=== PATIENT | female | born 1975 | race Caucasian/White ===

== ENCOUNTER 2022-03-09 07:49 | Outpatient (CLI) | payer OTHER, SELFPAY ==
[2022-03-09 12:02] LABS: Vitamin D 25 Hydroxy* 22 ng/mL (30-80)
[2022-03-09 12:21] LABS: Albumin* 3.9 g/dL (3.3-5.0); Chloride* 104 mmol/L (96-114)
[2022-03-09 12:22] LABS: Potassium* 3.8 mmol/L (3.6-5.1); Sodium* 141 mmol/L (135-149)
[2022-03-09 12:24] LABS: Aspartate Amino Transferase* 39 U/L (12-35); Bilirubin Total* 0.6 mg/dL (0.1-1.5); Blood Urea Nitrogen* 11 mg/dL (5-24); Carbon Dioxide* 29 mmol/L (20-32); Cholesterol* 201 mg/dL (90-199); Creatinine* 0.7 mg/dL (0.5-1.5); Estimated Glomerular Filt Rate 109 ml/min; Total Protein* 7.2 g/dL (6.0-8.3)
[2022-03-09 12:25] LABS: Alanine Aminotransferase* 50 U/L (4-35); Alkaline Phosphatase* 81 U/L (40-150); Calcium* 9.1 mg/dL (8.4-10.6); Glucose* 121 mg/dL (60-115); HDL Cholesterol* 31 mg/dL (>=50); LDL Cholesterol Calculated 138 mg/dL (<100); Triglycerides* 159 mg/dL (40-149)
== END 2022-03-09 07:50 | disposition home or self-care (01) ==
PROVIDERS: PCP Family Medicine; Visit Provider Family Medicine
DX: E78.5 Hyperlipidemia, unspecified (principal); R73.03 Prediabetes; E55.9 Vitamin D deficiency, unspecified; U07.1 COVID-19
CPT/HCPCS: 80053; 80061; 82306

== ENCOUNTER 2022-05-06 11:12 | Outpatient (CLI) | payer OTHER, SELFPAY ==
--- NOTE | 2022-05-06 11:30 | CRLHL7_ITS ---
For Patients: As a result of the Century Cures Act, medical imaging exams and procedure reports are released immediately into your electronic medical record. You may view this report before your referring provider. If you have questions, please contact your health care provider. BILATERAL SCREENING MAMMOGRAM WITH COMPUTER-AIDED DETECTION AND TOMOSYNTHESIS TECHNIQUE: CC and MLO views were obtained. These mammographic images have been obtained using full-field digital technique. These mammographic images were interpreted with the benefit of computer-aided detection. Breast Tomosynthesis was used in this interpretation. COMPARISON FILM: 05/05/21, 04/25/20, 04/25/18. FINDINGS: There are scattered areas of fibroglandular density IMPRESSION: There is no radiographic evidence for malignancy. ASSESSMENT: BI-RADS Category 1: Negative RECOMMENDATION: Routine screening mammogram in 1 year. A lay language report of this examination will be provided to the patient. Wayne Ritchie M.D. Diagnostic Radiologist [email or web address] STEFANY/Dictated by: Wayne Ritchie MD @ 05/06/2022 11:51:00 AM (Electronically Signed)
== END 2022-05-06 11:13 | disposition home or self-care (01) ==
PROVIDERS: PCP Family Medicine; Visit Provider Family Medicine
DX: Z12.31 Encounter for screening mammogram for malignant neoplasm of breast (principal)
CPT/HCPCS: 77063; 77067

== ENCOUNTER 2023-01-18 09:14 | Emergency (ER) | payer OTHER, SELFPAY ==
[2023-01-18] VITALS (19 sets, daily range): BP systolic 139–183; BP diastolic 82–98; PULSE 56–149; RESP 18; TEMP 36.1; O2SAT 91–97; BMI 48.4
--- NOTE | 2023-01-18 09:37 | ED_ITS ---
HPI - Abdominal Pain General Time Seen by Provider: 09:37 Date Seen: 01/18/23 Chief Complaint: Abdominal Pain Stated Complaint: Vomiting, side pain Time Seen by Provider: 01/18/23 09:37 Source: patient, RN notes reviewed and old records reviewed Mode of arrival: ambulatory Limitations: no limitations History of Present Illness HPI narrative: Macarena is a very pleasant 47-year-old female with a history of elevated BMI, asthma, kidney stones who comes to the emergency room with pain and vomiting. Patient notes the onset of left lateral abdominal pain radiating into her back today. She is rating the pain a 10/10. It is associated with nausea and vomiting. She has not noticed any fever but does not feel well. She has had no dysuria hematuria or diarrhea. She has had kidney stones in the past but this does not feel like that. She has not yet taken anything for pain. She is at work this morning she works for [employer] in [employer]. She notes that the pain was so bad that she almost had delay on the floor. Related Data Home Medications Medication Instructions Recorded Confirmed albuterol sulfate 2.5 mg/3 mL 2.5 mg inhalation ONCE PRN 03/09/22 12/16/22 (0.083 %) solution for nebulization loratadine 10 mg tablet 10 mg PO DAILY 03/09/22 12/16/22 multivitamin 1 tab PO QDAY 03/09/22 12/16/22 Previous Rx's Medication Instructions Recorded albuterol sulfate 90 mcg/actuation 2 puff inhalation .Q4hprn PRN 03/29/22 aerosol inhaler shortness of breath or wheezing #8.5 grams hydrocodone 5 mg-acetaminophen 325 1 tab PO Q4-6H PRN pain #14 tabs 01/18/23 mg tablet ketorolac 10 mg tablet 10 mg PO Q6H 5 days #20 tabs 01/18/23 ondansetron 4 mg disintegrating 4 mg PO Q8H PRN nausea and 01/18/23 tablet vomiting #10 tabs Allergies Allergy/AdvReac Type Severity Reaction Status Date / Time latex Allergy Mild Rash Verified 08/09/22 12:44 Review of Systems Status of ROS Reports: 10 or more systems reviewed and unremarkable except as noted in History and below Const Reports: chills and fatigue; Denies: fever ENMT Denies: throat pain, neck pain or difficulty swallowing Cardio Denies: chest pain or shortness of breath with exertion Resp Denies: shortness of breath GI Reports: abdominal pain, nausea and vomiting; Denies: diarrhea, difficulty swallowing or blood in stool Denies: painful urination, urinary frequency, urinary urgency or blood in urine Musculo Reports: back pain; Denies: neck pain Neuro Denies: headache Endo Reports: fatigue [facility] Medical History Cerumen impaction ?H61.20 - Impacted cerumen, unspecified ear (ICD-10) Calculus of kidney ?N20.0 - Calculus of kidney (ICD-10) Allergic reaction ?T78.40XA - Allergy, unspecified, initial encounter (ICD-10) Surgical History History of tonsillectomy (09/28/11) ?Z90.89 - Acquired absence of other organs (ICD-10) History of cholecystectomy ?Z90.49 - Acquired absence of other specified parts of digestive tract (ICD- 10) Social History Smoking Status: Never smoker How often do you have a drink containing alcohol: never How often do you have six or more drinks on one occasion: Never AUDIT-C Alcohol total score: 0 Non-prescribed substance use: denies use Little interest or pleasure in doing things: not at all Feeling down, depressed, or hopeless: several days Exam Narrative: Exam Narrative: Alert and oriented. Is preferring to sit on the side of the bed. External ears eyes nose clear. Oral cavity moist mucous membranes. Heart with regular rate and rhythm and lungs are clear bilaterally. Abdomen shows no tenderness at this time no CVA tenderness with percussion. No unusual rash noted. Moving all extremities. Const: Vital Signs, click to edit/add: Vital Signs - 24 hr 01/18/23 09:29 01/18/23 10:08 01/18/23 10:15 Temperature 96.9 F L Pulse Rate 62 Pulse Rate [Right Pulse Oximeter] 82 Respiratory Rate 18 Blood Pressure Blood Pressure [Ri ght Upper Arm] 183/98 H Pulse Oximetry 94 91 96 Oxygen Delivery Me thod Room Air Nasal Cannula Oxygen Flow Rate 2 07/04/23 10:15 01/18/23 10:30 01/18/23 10:35 Temperature Pulse Rate 60 59 L 70 Pulse Rate [Right Pulse Oximeter] Respiratory Rate Blood Pressure Blood Pressure [Ri ght Upper Arm] Pulse Oximetry 96 96 95 Oxygen Delivery Me thod Nasal Cannula Nasal Cannula Nasal Cannula Oxygen Flow Rate 2 2 2 01/18/23 11:00 01/18/23 11:04 01/18/23 11:15 Temperature Pulse Rate 64 58 L 56 L Pulse Rate [Right Pulse Oximeter] Respiratory Rate Blood Pressure 168/98 H Blood Pressure [Ri ght Upper Arm] Pulse Oximetry 95 96 96 Oxygen Delivery Me thod Nasal Cannula Nasal Cannula Nasal Cannula Oxygen Flow Rate 2 2 2 01/18/23 11:30 01/18/23 11:33 01/18/23 11:56 Temperature Pulse Rate 56 L 59 L 149 H Pulse Rate [Right Pulse Oximeter] Respiratory Rate Blood Pressure 162/90 H Blood Pressure [Ri ght Upper Arm] Pulse Oximetry 95 97 92 Oxygen Delivery Me thod Nasal Cannula Nasal Cannula Nasal Cannula Oxygen Flow Rate 2 2 2 01/18/23 11:58 01/18/23 12:00 01/18/23 12:02 Temperature Pulse Rate 62 58 L 60 Pulse Rate [Right Pulse Oximeter] Respiratory Rate Blood Pressure 139/92 H 151/83 H Blood Pressure [Ri ght Upper Arm] Pulse Oximetry 95 96 95 Oxygen Delivery Me thod Nasal Cannula Nasal Cannula Nasal Cannula Oxygen Flow Rate 2 2 2 01/18/23 12:15 01/18/23 12:33 01/18/23 13:02 Temperature Pulse Rate 67 56 L 76 Pulse Rate [Right Pulse Oximeter] Respiratory Rate Blood Pressure 144/82 H 157/94 H Blood Pressure [Ri ght Upper Arm] Pulse Oximetry 96 95 97 Oxygen Delivery Me thod Nasal Cannula Nasal Cannula Nasal Cannula Oxygen Flow Rate 2 2 2 Documenting provider has reviewed patient's vital signs: yes Course Course Hospital Course: Differential diagnosis includes but is not limited to diverticulitis, colitis, pyelonephritis, ureteral colic, nephrolithiasis. Will place IV give morphine Toradol normal saline as well as Zofran. Will get labs to include CBC, comprehensive, CRP, lipase and urinalysis. Suspect that we will need to do CT but will hold off until urinalysis is returned. Reevaluation(s) Reevaluation #1: Patient notes much improved pain is rating it a 4/10 at this time. She did have oxygen applied as morphine made her mildly hypoxic. Vital Signs Vital signs: Initial Vital Signs Temperature 96.9 F L 01/18/23 09:29 Temperature Source Temporal Artery Scan 01/18/23 09:29 Pulse Rate 82 01/18/23 09:29 Respiratory Rate 18 01/18/23 09:29 Blood Pressure 183/98 H 01/18/23 09:29 Blood Pressure Mean 126 H 01/18/23 09:29 Blood Pressure Position Sitting 01/18/23 09:29 Pulse Oximetry 94 01/18/23 09:29 Oxygen Delivery Method Room Air 01/18/23 09:29 Vital Signs Temperature 96.9 F L 01/18/23 09:29 Pulse Rate 82 01/18/23 09:29 Respiratory Rate 18 01/18/23 09:29 Blood Pressure 183/98 H 01/18/23 09:29 Pulse Oximetry 94 01/18/23 09:29 Oxygen Delivery Method Room Air 01/18/23 09:29 Temperature 96.9 F L 01/18/23 09:29 Pulse Rate 76 01/18/23 13:02 Respiratory Rate 18 01/18/23 09:29 Blood Pressure 157/94 H 01/18/23 13:02 Pulse Oximetry 97 01/18/23 13:02 Oxygen Delivery Method Nasal Cannula 01/18/23 13:02 Oxygen Flow Rate 2 01/18/23 13:02 MDM - Abdominal Pain MDM Narrative Medical decision making narrative: 1. Ureteral colic-patient has a 0.5 cm stone in the left ureter. This is causing hydronephrosis and hydroureter. She has no evidence of a UTI at this time but will culture urine. White count within normal limits. Urinalysis does show hematuria. Patient improved after Toradol 15 mg IV, morphine 4 mg IV, Zofran 4 mg IV, 1 L normal saline. She will be allowed to go home at this time and will use Zofran 4 mg ODT Q 8 hours p.r.n., 10. For pain Toradol 10 mg p.o. q.6 hours p.r.n. 20. With no refills, Verona 11/3250 tab p.o. q.4-6 hours p.r.n. pain not relieved by Toradol 14. All prescription sent to [facility] which is not her normal pharmacy because this is the holiday and we know they are open until 1400 hours. I did speak with patient specifically about the use of Verona and explained that it is hydrocodone. She states that she has reacted to oxycodone in the past and did not like it but has been able to use Verona. I hesitate given her elevated BMI as she certainly could be at risk for respiratory depression. She does not take any other sedating medications including benzodiazepines. I specifically asked that she sleep on her side or stomach and not on her back if she needs to use this medication. She does understand the risk of the medicine. I am hopeful that we may be able to get by with Toradol alone but in reality I do not think this is the case. I think that a 5 mm stone will be challenging to pass in this particular patient. Would request patient strain her urine and if she does pass the stone present that stone to her primary MD for analysis. Otherwise she will follow up with her primary doctorAgata for follow-up. If she has continued pain and the stone is not passing she may need to see Urology. Fortunately the size increases her risk of failure to pass. 2. Disposition-home at this time. She does have family members at home as she lives with her brother and her mother. If she has fever, vomiting, increasing pain she will need to return for further evaluation. Medical Records Attestation: I reviewed the patient's medical records. Lab Data Attestation: I reviewed the patient's lab results. Labs: Lab Results 01/18/23 01/18/23 Range/Units 09:55 10:45 WBC 10.84 (4.50-11.00) K/uL RBC 4.59 (4.00-5.20) m/uL Hgb 13.7 (12.0-16.0) gm/dL Hct 41.6 (33.0-51.0) % MCV 91 (80-100) fL MCH 30 (26-34) pg MCHC 33 (32-36) gm/dL RDW Coeff of Susie 12.8 (11.5-15.5) % Plt Count 291 (140-440) K/uL Neut % (Auto) 80.6 H (42.0-72.0) % Lymph % (Auto) 13.8 L (20-44) % [place] % (Auto) 3.9 (0.0-11.0) % Eos % (Auto) 0.9 (0.0-7.0) % Baso % (Auto) 0.5 (0.0-3.0) % Neut # (Auto) 8.70 H (1.7-7.0) K/uL Lymph # (Auto) 1.50 (0.90-2.90) K/uL [place] # (Auto) 0.40 (0.00-0.90) K/UL Eos # (Auto) 0.10 (0.00-0.50) K/uL Baso # (Auto) 0.05 (0.00-0.30) K/uL Sodium 140 (135-149) mmol/L Potassium 3.8 (3.6-5.1) mmol/L Chloride 105 (96-114) mmol/L Carbon Dioxide 28 (20-32) mmol/L BUN 13 (5-24) mg/dL Creatinine 0.8 (0.5-1.5) mg/dL Estimated Creat Clear 82.26 Estimated GFR 92 ml/min Glucose 130 H (60-115) mg/dL Lactate 1.2 (0.5-1.9) mmol/L Calcium 9.2 (8.4-10.6) mg/dL Total Bilirubin 0.6 (0.1-1.5) mg/dL AST 28 (12-35) U/L ALT 31 (4-35) U/L Alkaline Phosphatase 83 (40-150) U/L C-Reactive Protein 1.5 H (0.5-1.0) mg/dL Total Protein 7.6 (6.0-8.3) g/dL Albumin 4.2 (3.3-5.0) g/dL Lipase 37 (23-300) U/L Urine Color Brown A (Yellow) Urine Appearance Cloudy A (Clear) Urine pH 5.5 (5.0-8.5) Ur Specific [place] >= 1.030 (1.000-1.030) Urine Protein 2+ A (Negative) Urine Glucose (UA) Negative (Negative) Urine Ketones Negative (Negative) Urine Blood 3+ A (Negative) Urine Nitrite Negative (Negative) Urine Bilirubin Negative (Negative) Urine Urobilinogen 0.2 (0.2-1.0) Ur Leukocyte Esterase Negative (Negative) Urine RBC >100 A (0-2) Urine WBC 5-10 A (0-5) Ur Squamous Epith Cells Few (None-Few) Urine Bacteria Few A (None) Imaging Data CT scan - abdomen: Attestation: I have reviewed the pertinent imaging results. My impression: Stone noted in left ureter Radiologist's impression: There is atelectasis in the dependent portion of the lung bases. There is no focal liver lesion. The spleen, pancreas and adrenal glands are of unremarkable nonenhanced CT appearance. The gallbladder is surgically absent. There are at least 4 cysts in the right kidney largest seen anteriorly measuring 1.5 cm, unchanged from the previous the study. There is no right hydronephrosis. There is no stone seen in the right kidney or ureter. There is delayed perfusion of the left kidney compared to the right with stranding of the fat around the left kidney. There is moderate left hydronephrosis and hydroureter with a 0.5 cm stone in the distal left ureter approximately 3 cm above the ureterovesical junction. There is no other stone seen in the left kidney. There is a cyst in the lower pole of the left kidney. There is no evidence of a bowel obstruction. The appendix is unremarkable. The abdominal aorta is normal in caliber. There is no adenopathy. There is no free fluid in the abdomen or pelvis. There are degenerative changes in the spine. IMPRESSION: 1. 0.5 cm stone distal left ureter approximately the 3 cm above the ureterovesical junction causing moderate left hydronephrosis and hydroureter with delayed perfusion of the left kidney and stranding of the fat around left kidney. 2. Bilateral kidney cysts. 3. Status post cholecystectomy. Discharge Plan Discharge Clinical Impression: Colic, ureteral, Nephrolithiasis Patient Disposition: Home, Self-Care Condition: Improved Additional Instructions: For nausea, Zofran every 6-8 hours as needed. Try to push fluids as much as possible. Strain urine For pain Toradol which is a nonnarcotic much like ibuprofen as directed. For continued pain you may use Verona also known as hydrocodone/Tylenol. If you are using this medication be aware that this can cause sedation. Try to sleep on your side or your stomach. Do not take any other medication which may cause sleepiness. You may also want to start a stool softener as Verona can cause constipation. Follow-up with your primary MD for recheck if you are not improving. If you have continued pain and the stone is not passing you may need to see Urology for consultation. Return to the emergency room for worsening symptoms. Prescriptions: New hydrocodone-acetaminophen 5-325 mg tablet 1 tab PO Q4-6H PRN (Reason: pain) Qty: 14 0RF ketorolac 10 mg tablet 10 mg PO Q6H 5 Days Qty: 20 0RF ondansetron 4 mg tablet,disintegrating 4 mg PO Q8H PRN (Reason: nausea and vomiting) Qty: 10 0RF No Action albuterol sulfate 2.5 mg /3 mL (0.083 %) solution for nebulization 2.5 mg inhalation ONCE PRN loratadine 10 mg tablet 10 mg PO DAILY multivitamin Tablet 1 tab PO QDAY albuterol sulfate 90 mcg/actuation HFA aerosol inhaler 2 puff inhalation .Q4hprn PRN (Reason: shortness of breath or wheezing) Qty: 8.5 3RF Follow Up/Referrals: Anthony Parmar MD [Primary Care Provider] - Stand Alone Forms: [employer] Info Instructions
[2023-01-18] MEDS: 0.9 % SODIUM CHLORIDE 1000 ml 1,000 ML IV (09:57)
[2023-01-18] MEDS: MORPHINE 4 MG/ML INJ IVP (09:57)
[2023-01-18] MEDS: KETOROLAC 15 MG/ML inj IVP (10:01)
[2023-01-18] MEDS: ONDANSETRON 2 MG/ML inj 4 MG IVP (10:02)
[2023-01-18 10:05] LABS: Lactate* 1.2 mmol/L (0.5-1.9)
[2023-01-18 10:07] LABS: Basophils Absolute Auto 0.05 K/uL (0.00-0.30); Basophils Percent Auto 0.5 % (0.0-3.0); Eosinophils Percent Auto 0.9 % (0.0-7.0); Hematocrit 41.6 % (33.0-51.0); Hemoglobin* 13.7 gm/dL (12.0-16.0); Immature Granulocytes Abs Auto 0.03 K/uL (0.00-0.30); Immature Granulocytes Pct Auto 0.3 %; Lymphocytes Percent Auto 13.8 % (20-44); Mean Corpuscular HGB Conc 33 gm/dL (32-36); Mean Corpuscular Hemoglobin 30 pg (26-34); Mean Corpuscular Volume 91 fL (80-100); Monocytes Percent Auto 3.9 % (0.0-11.0); Neutrophils Percent Auto 80.6 % (42.0-72.0); Platelet Count* 291 K/uL (140-440); RDW Coefficient of Variation % 12.8 % (11.5-15.5); Red Blood Count 4.59 m/uL (4.00-5.20); White Blood Count* 10.84 K/uL (4.50-11.00)
[2023-01-18 10:14] LABS: Slide Review Reflex No
[2023-01-18 10:29] LABS: Chloride* 105 mmol/L (96-114)
[2023-01-18 10:30] LABS: Albumin* 4.2 g/dL (3.3-5.0); Potassium* 3.8 mmol/L (3.6-5.1); Sodium* 140 mmol/L (135-149)
[2023-01-18 10:32] LABS: Creatinine* 0.8 mg/dL (0.5-1.5); Est. Creatinine Clearance* 82.26; Estimated Glomerular Filt Rate 92 ml/min
[2023-01-18 10:33] LABS: Alanine Aminotransferase* 31 U/L (4-35); Alkaline Phosphatase* 83 U/L (40-150); Aspartate Amino Transferase* 28 U/L (12-35); Bilirubin Total* 0.6 mg/dL (0.1-1.5); Blood Urea Nitrogen* 13 mg/dL (5-24); Carbon Dioxide* 28 mmol/L (20-32); Glucose* 130 mg/dL (60-115); Lipase* 37 U/L (23-300); Total Protein* 7.6 g/dL (6.0-8.3)
[2023-01-18 10:34] LABS: Calcium* 9.2 mg/dL (8.4-10.6)
[2023-01-18 10:36] LABS: C Reactive Protein* 1.5 mg/dL (0.5-1.0)
[2023-01-18 10:51] LABS: Appearance Urine Cloudy (Clear); Bilirubin Urine Negative (Negative); Blood Urine 3+ (Negative); Color Urine Brown (Yellow); Glucose Urine Negative (Negative); Ketones Urine Negative (Negative); Leukocyte Esterase Urine Negative (Negative); Nitrite Urine Negative (Negative); Protein Urine 2+ (Negative); Specific Gravity Urine >= 1.030 (1.000-1.030); Urobilinogen Urine 0.2 (0.2-1.0); pH Urine 5.5 (5.0-8.5)
[2023-01-18 11:00] LABS: Bacteria Urine Few; RBC Urine >100 (0-2); Squamous Epithelial Cell Urine Few (None-Few)
--- NOTE | 2023-01-18 11:32 | CRLHL7_ITS ---
For Patients: As a result of the Century Cures Act, medical imaging exams and procedure reports are released immediately into your electronic medical record. You may view this report before your referring provider. If you have questions, please contact your health care provider. INDICATION: Left-sided abdominal pain. TECHNIQUE: Multiple axial images were obtained from the diaphragm to the symphysis pubis after administration 147 mL of Isovue-370 intravenously. Sagittal and coronal re-formatted images were obtained. COMPARISON: 12/02/2019. FINDINGS: There is atelectasis in the dependent portion of the lung bases. There is no focal liver lesion. The spleen, pancreas and adrenal glands are of unremarkable nonenhanced CT appearance. The gallbladder is surgically absent. There are at least 4 cysts in the right kidney largest seen anteriorly measuring 1.5 cm, unchanged from the previous the study. There is no right hydronephrosis. There is no stone seen in the right kidney or ureter. There is delayed perfusion of the left kidney compared to the right with stranding of the fat around the left kidney. There is moderate left hydronephrosis and hydroureter with a 0.5 cm stone in the distal left ureter approximately 3 cm above the ureterovesical junction. There is no other stone seen in the left kidney. There is a cyst in the lower pole of the left kidney. There is no evidence of a bowel obstruction. The appendix is unremarkable. The abdominal aorta is normal in caliber. There is no adenopathy. There is no free fluid in the abdomen or pelvis. There are degenerative changes in the spine. IMPRESSION: 1. 0.5 cm stone distal left ureter approximately the 3 cm above the ureterovesical junction causing moderate left hydronephrosis and hydroureter with delayed perfusion of the left kidney and stranding of the fat around left kidney. 2. Bilateral kidney cysts. 3. Status post cholecystectomy. Please note that all CT scans at this facility use dose modulation, iterative reconstruction, and/or weight-based dosing when appropriate to reduce radiation dose to as low as reasonably achievable. Dictated by Khalif Forbes MD @ 01/18/2023 12:24:31 PM (Electronically Signed)
--- NOTE | 2023-01-18 13:20 | ED.NURSE ---
Supplemental O2 DC'd, pt maintaining sats on RA.
[2023-01-18] MEDS: TAMSULOSIN HCL 0.4 MG CAPSULE PO (13:26)
== END 2023-01-18 13:45 | disposition home or self-care (01) ==
PROVIDERS: Emergency Provider Family Medicine; PCP Family Medicine
DX: N20.0 Calculus of kidney (principal)
CPT/HCPCS: 36415; 74177; 80053; 81001; 83605; 83690; 85025; 86140; 87086; 96374; 96375; 99284; A9270; J1885; J2270; J2405; J7030; Q9967

== ENCOUNTER 2023-02-03 10:10 | Outpatient (CLI) | payer OTHER, SELFPAY | END 2023-02-03 10:11 | disposition home or self-care (01) | LOC: NFLDREF 10:11 | PROVIDERS: PCP Family Medicine; Visit Provider Family Medicine | DX: N13.30 Unspecified hydronephrosis (principal); N20.1 Calculus of ureter; E78.5 Hyperlipidemia, unspecified | CPT/HCPCS: 80048 ==

== ENCOUNTER 2023-04-29 12:33 | Emergency (ER) | payer OTHER, SELFPAY ==
[2023-04-29] VITALS (10 sets, daily range): BP systolic 146–169; BP diastolic 95–128; PULSE 71–95; RESP 20; TEMP 36.7; O2SAT 92–95; BMI 46.7
--- NOTE | 2023-04-29 12:53 | CRLHL7_ITS ---
For Patients: As a result of the Cures Act, medical imaging exams and procedure reports are released immediately into your electronic medical record. You may view this report before your referring provider. If you have questions, please contact your health care provider. Indication: Knee pain Technique: Three views Comparison: None Findings/Impression: Bones: No evidence of fracture. Joint spaces: Patellofemoral and lateral compartment osteophytes with a large knee effusion. Soft tissues: Unremarkable. Dictated by Joseph Rushing MD @ 04/29/2023 2:19:27 PM (Electronically Signed)
--- NOTE | 2023-04-29 13:07 | ED_ITS ---
HPI - General Adult General Chief complaint: Extremity Pain/Injury, Lower Stated complaint: L leg/lower abdominal pain Time Seen by Provider: 04/29/23 12:36 Source: patient Mode of arrival: ambulatory Limitations: no limitations History of Present Illness HPI narrative: 48-year-old female coming in today with 2 concerns 1 she has left-sided knee pain that started yesterday. She denies any trauma. She states that the pain is located circumferentially around the knee and shoots pain down into the lower leg. She feels that the rest of the lower leg is a little bit tingly that sensation comes and goes. She denies any swelling to the knee that she is aware of. She denies any systemic symptoms like fevers, chills, nausea or vomiting. She is able to walk but it is quite painful for her. Second issue is right lower quadrant abdominal pain. Patient states that this just started today. She describes it as a discomfort in the very lowest part of the abdomen. Nothing makes it better or worse. She has no dysuria, increased frequency urgency. Denies diarrhea constipation. Again, denies any systemic symptoms. Related Data Home Medications Medication Instructions Recorded Confirmed albuterol sulfate 2.5 mg/3 mL 2.5 mg inhalation ONCE PRN 03/09/22 04/29/23 (0.083 %) solution for nebulization loratadine 10 mg tablet 10 mg PO DAILY 03/09/22 04/29/23 multivitamin 1 tab PO QDAY 03/09/22 04/29/23 Previous Rx's Medication Instructions Recorded albuterol sulfate 90 mcg/actuation 2 puff inhalation .Q4hprn PRN 03/29/22 aerosol inhaler shortness of breath or wheezing #8.5 grams methylprednisolone 4 mg tablets in See Rx Instructions PO .COMPLEX 04/29/23 a dose pack (Medrol (Jim)) #21 ea Allergies Allergy/AdvReac Type Severity Reaction Status Date / Time latex Allergy Mild Rash Verified 04/29/23 12:47 Review of Systems Status of ROS: Reports: 10 or more systems reviewed and unremarkable except as noted in History and below [facility] Medical History Cerumen impaction ?H61.20 - Impacted cerumen, unspecified ear (ICD-10) Calculus of kidney ?N20.0 - Calculus of kidney (ICD-10) Allergic reaction ?T78.40XA - Allergy, unspecified, initial encounter (ICD-10) Surgical History History of tonsillectomy (09/28/11) ?Z90.89 - Acquired absence of other organs (ICD-10) History of cholecystectomy ?Z90.49 - Acquired absence of other specified parts of digestive tract (ICD- 10) Social History Smoking Status: Never smoker How often do you have a drink containing alcohol: never How often do you have six or more drinks on one occasion: Never AUDIT-C Alcohol total score: 0 Non-prescribed substance use: denies use Little interest or pleasure in doing things: not at all Feeling down, depressed, or hopeless: several days Exam Narrative: Exam Narrative: Morbidly obese patient in no acute distress. Alert and oriented. Answers questions appropriately. Mood and affect are appropriate. Thoughts are goal oriented and rational. No tangential or magical thinking noted. Patient speaks in full sentences without needing to catch her breath. HEENT: Normocephalic atraumatic. Pupils are equally round reactive to light. Extraocular muscles are intact. Conjunctivae are moist without any icterus noted. Moist mucous membranes. Posterior pharynx is normal. Neck is soft . Cardiovascular: Heart is regular rate and rhythm S1 and S2 are present without any murmurs. Lungs: Clear to auscultation bilaterally no wheezes rhonchi or rales are appreciated. Patient takes deep breaths without any discomfort. Abdomen: Soft and nontender nondistended with normal bowel sounds. No guarding or rebound. No masses or organomegaly appreciated. The area that she points to is suprapubic area and just to the right underneath her pannus. I can push in that area quite firmly without any significant discomfort. She has a negative Smith sign. She has no pain at McBurney's point. Extremities: Bilateral lower extremities are without edema. Normal DP and PT pulses. Knee has normal appearance. She has full range of motion of flexion and extension with minimal discomfort. Difficult to assess for any masses in the posterior knee secondary to body habitus. The skin is not red, or hot. She has no rashes that are noticeable. Difficult to assess for a joint effusion. There is no valgus or varus laxity. Anterior and posterior drawer normal. There is no calf pain, negative Homans sign. There is no calf swelling. No palpable cords are appreciated. Skin: Well perfused without any obvious rashes. Const: Vital Signs, click to edit/add: Vital Signs - 24 hr 04/29/23 12:43 04/29/23 13:12 04/29/23 13:13 Temperature 98.1 F Pulse Rate 84 87 Pulse Rate [Pulse Oximeter] 95 Respiratory Rate 20 Blood Pressure 167/128 H Blood Pressure [Ri ght Upper Arm] 146/102 H Pulse Oximetry 95 94 93 Oxygen Delivery Me thod Room Air 04/29/23 13:30 04/29/23 13:32 Temperature Pulse Rate 81 82 Pulse Rate [Pulse Oximeter] Respiratory Rate Blood Pressure 166/104 H Blood Pressure [Ri ght Upper Arm] Pulse Oximetry 94 94 Oxygen Delivery Me thod Course Course ED Course: Proceeded with an x-ray of the knee: This shows a large joint effusion. Labs were drawn to look for any signs of infection or inflammation: Unremarkable. Vital Signs Vital signs: Initial Vital Signs Temperature 98.1 F 04/29/23 12:43 Temperature Source Temporal Artery Scan 04/29/23 12:43 Pulse Rate 95 04/29/23 12:43 Pulse Rhythm Regular 04/29/23 12:43 Pulse Strength 3+ Normal 04/29/23 12:43 Respiratory Rate 20 04/29/23 12:43 Blood Pressure 146/102 H 04/29/23 12:43 Blood Pressure Mean 116 H 04/29/23 12:43 Blood Pressure Position Sitting 04/29/23 12:43 Pulse Oximetry 95 04/29/23 12:43 Oxygen Delivery Method Room Air 04/29/23 12:43 Vital Signs Temperature 98.1 F 04/29/23 12:43 Pulse Rate 95 04/29/23 12:43 Respiratory Rate 20 04/29/23 12:43 Blood Pressure 146/102 H 04/29/23 12:43 Pulse Oximetry 95 04/29/23 12:43 Oxygen Delivery Method Room Air 04/29/23 12:43 Temperature 98.1 F 04/29/23 12:43 Pulse Rate 82 04/29/23 13:32 Respiratory Rate 20 04/29/23 12:43 Blood Pressure 166/104 H 04/29/23 13:32 Pulse Oximetry 94 04/29/23 13:32 Oxygen Delivery Method Room Air 04/29/23 12:43 Medical Decision Making MDM Narrative Medical decision making narrative: 48-year-old female with knee pain in the joint effusion unclear etiology. At this time we will place the patient in a knee immobilizer, treat her with Medrol Dosepak and NSAIDs. Follow-up with PCP in 2 weeks or with orthopedics if pain is getting worse instead of better. Return to ER if knee becomes red or hot. As far as her mild suprapubic discomfort, will monitor at this time. Lab Data Labs: Lab Results 04/29/23 04/29/23 Range/Units 13:15 13:25 WBC 11.10 H (4.50-11.00) K/uL RBC 4.67 (4.00-5.20) m/uL Hgb 13.8 (12.0-16.0) gm/dL Hct 42.4 (33.0-51.0) % MCV 91 (80-100) fL MCH 30 (26-34) pg MCHC 33 (32-36) gm/dL RDW Coeff of Susie 12.9 (11.5-15.5) % Plt Count 264 (140-440) K/uL Neut % (Auto) 66.8 (42.0-72.0) % Lymph % (Auto) 22.8 (20-44) % Garfield % (Auto) 6.2 (0.0-11.0) % Eos % (Auto) 3.5 (0.0-7.0) % Baso % (Auto) 0.4 (0.0-3.0) % Neut # (Auto) 7.40 H (1.7-7.0) K/uL Lymph # (Auto) 2.50 (0.90-2.90) K/uL Garfield # (Auto) 0.70 (0.00-0.90) K/UL Eos # (Auto) 0.40 (0.00-0.50) K/uL Baso # (Auto) 0.00 (0.00-0.30) K/uL Abs Immat Gran (auto) 0.00 (0.00-0.30) K/uL Imm/Tot Granulo (auto) 0.3 % Sodium 141 (135-149) mmol/L Potassium 3.7 (3.6-5.1) mmol/L Chloride 105 (96-114) mmol/L Carbon Dioxide 27 (20-32) mmol/L Anion Gap 9 (7-15) mEq/L BUN 13 (5-24) mg/dL Creatinine 0.8 (0.5-1.5) mg/dL Estimated Creat Clear 84.54 Estimated GFR 91 ml/min Glucose 102 (60-115) mg/dL Lactate 0.9 (0.5-1.9) mmol/L Calcium 9.1 (8.4-10.6) mg/dL C-Reactive Protein 1.4 H (0.5-1.0) mg/dL Urine Color Yellow (Yellow) Urine Appearance Slightly Cloudy A (Clear) Urine pH 6.0 (5.0-8.5) Ur Specific Mercedes 1.025 (1.000-1.030) Urine Protein Negative (Negative) Urine Glucose (UA) Negative (Negative) Urine Ketones Negative (Negative) Urine Blood Trace-lysed A (Negative) Urine Nitrite Negative (Negative) Urine Bilirubin Negative (Negative) Urine Urobilinogen 0.2 (0.2-1.0) Ur Leukocyte Esterase Negative (Negative) Urine RBC 0-2 (0-2) Urine WBC 0-2 (0-5) Ur Squamous Epith Cells Moderate A (None-Few) Urine Bacteria Moderate A (None) Urine HCG, Qual Negative (Negative) Imaging Data Knee x-ray: Attestation: I have reviewed the pertinent imaging results. Radiologist's impression: Knee pain Technique: Three views Comparison: None Findings/Impression: Bones: No evidence of fracture. Joint spaces: Patellofemoral and lateral compartment osteophytes with a large knee effusion. Soft tissues: Unremarkable. Discharge Plan Discharge Clinical Impression: Acute knee pain, Suprapubic discomfort Patient Disposition: Home, Self-Care Condition: Stable Additional Instructions: Wear knee immobilizer at all times for stability and comfort. Use steroids as prescribed -this will help with inflammation and swelling. Follow-up with your primary care provider in 2 weeks or worth orthopedics if pain is getting worse instead of better. Return to the ER if knee becomes red or hot. Okay to use Tylenol or ibuprofen as directed/as needed. Prescriptions: New methylprednisolone [Medrol (Jim)] 4 mg tablets,dose pack See Rx Instructions .ROUTE .COMPLEX Qty: 21 0RF Rx Instructions: orally per package directions No Action albuterol sulfate 2.5 mg /3 mL (0.083 %) solution for nebulization 2.5 mg inhalation ONCE PRN loratadine 10 mg tablet 10 mg PO DAILY multivitamin Tablet 1 tab PO QDAY albuterol sulfate 90 mcg/actuation HFA aerosol inhaler 2 puff inhalation .Q4hprn PRN (Reason: shortness of breath or wheezing) Qty: 8.5 3RF Follow Up/Referrals: Anthony Parmar MD [Primary Care Provider] - Stand Alone Forms: [place] Info Instructions
[2023-04-29 13:33] LABS: Lactate* 0.9 mmol/L (0.5-1.9)
[2023-04-29 13:38] LABS: Basophils Percent Auto 0.4 % (0.0-3.0); Eosinophils Percent Auto 3.5 % (0.0-7.0); Hematocrit 42.4 % (33.0-51.0); Hemoglobin* 13.8 gm/dL (12.0-16.0); Immature Granulocytes Pct Auto 0.3 %; Lymphocytes Percent Auto 22.8 % (20-44); Mean Corpuscular HGB Conc 33 gm/dL (32-36); Mean Corpuscular Hemoglobin 30 pg (26-34); Mean Corpuscular Volume 91 fL (80-100); Monocytes Percent Auto 6.2 % (0.0-11.0); Neutrophils Percent Auto 66.8 % (42.0-72.0); Platelet Count* 264 K/uL (140-440); RDW Coefficient of Variation % 12.9 % (11.5-15.5); Red Blood Count 4.67 m/uL (4.00-5.20)
[2023-04-29 13:39] LABS: Appearance Urine Slightly Cloudy (Clear); Bilirubin Urine Negative (Negative); Blood Urine Trace-lysed (Negative); Color Urine Yellow (Yellow); Glucose Urine Negative (Negative); Ketones Urine Negative (Negative); Leukocyte Esterase Urine Negative (Negative); Nitrite Urine Negative (Negative); Protein Urine Negative (Negative); Specific Gravity Urine 1.025 (1.000-1.030); Urobilinogen Urine 0.2 (0.2-1.0)
[2023-04-29 13:41] LABS: Ur HCG Qualitative* Negative (Negative)
[2023-04-29 13:47] LABS: Chloride* 105 mmol/L (96-114); Potassium* 3.7 mmol/L (3.6-5.1); Sodium* 141 mmol/L (135-149)
[2023-04-29 13:47] LABS: RBC Urine 0-2 (0-2); WBC Urine 0-2 (0-5)
[2023-04-29 13:48] LABS: Bacteria Urine Moderate; Squamous Epithelial Cell Urine Moderate (None-Few)
[2023-04-29 13:50] LABS: Creatinine* 0.8 mg/dL (0.5-1.5); Est. Creatinine Clearance* 84.54; Estimated Glomerular Filt Rate 91 ml/min
[2023-04-29 13:51] LABS: Anion Gap 9 mEq/L (7-15); Blood Urea Nitrogen* 13 mg/dL (5-24); Calcium* 9.1 mg/dL (8.4-10.6); Carbon Dioxide* 27 mmol/L (20-32); Glucose* 102 mg/dL (60-115)
[2023-04-29 13:53] LABS: C Reactive Protein* 1.4 mg/dL (0.5-1.0)
[2023-04-29 13:59] LABS: Slide Review Reflex No
== END 2023-04-29 14:56 | disposition home or self-care (01) ==
PROVIDERS: Emergency Provider Family Medicine; PCP Family Medicine
DX: M79.662 Pain in left lower leg (principal); R10.31 Right lower quadrant pain
CPT/HCPCS: 36415; 73562; 80048; 81001; 81025; 83605; 85025; 86140; 87086; 99283; 99284

== ENCOUNTER 2023-05-09 09:57 | Outpatient (CLI) | payer OTHER, SELFPAY ==
--- NOTE | 2023-05-09 10:15 | CRLHL7_ITS ---
For Patients: As a result of the Cures Act, medical imaging exams and procedure reports are released immediately into your electronic medical record. You may view this report before your referring provider. If you have questions, please contact your health care provider. BILATERAL SCREENING MAMMOGRAM WITH COMPUTER-AIDED DETECTION AND TOMOSYNTHESIS TECHNIQUE: CC and MLO views were obtained. These mammographic images have been obtained using full-field digital technique. These mammographic images were interpreted with the benefit of computer-aided detection. Breast Tomosynthesis was used in this interpretation. COMPARISON FILM: 05/06/22, 05/05/21, 04/25/20. FINDINGS: There are scattered areas of fibroglandular density IMPRESSION: There is no radiographic evidence for malignancy. ASSESSMENT: BI-RADS Category 1: Negative RECOMMENDATION: Routine screening mammogram in 1 year. A lay language report of this examination will be provided to the patient. Wayne Ritchie M.D. Diagnostic Radiologist [email or web address] [email or web address] Transcribed: 7:41 p.nahid brown/Dictated by: Wayne Ritchie MD @ 05/09/2023 12:02:00 PM (Electronically Signed)
== END 2023-05-09 09:58 | disposition home or self-care (01) ==
LOC: MAMMO 09:58
PROVIDERS: PCP Family Medicine; Visit Provider Family Medicine
DX: Z12.31 Encounter for screening mammogram for malignant neoplasm of breast (principal)
CPT/HCPCS: 77063; 77067

== ENCOUNTER 2023-06-28 09:18 | Outpatient (CLI) | payer OTHER, SELFPAY | END 2023-06-28 09:19 | disposition home or self-care (01) | LOC: NFLDREF 14:27 | PROVIDERS: PCP Family Medicine; Referring Provider Family Medicine; Visit Provider Family Medicine | DX: Z00.00 Encounter for general adult medical examination without abnormal findings (principal); E78.5 Hyperlipidemia, unspecified; E55.9 Vitamin D deficiency, unspecified; R73.03 Prediabetes | CPT/HCPCS: 80053; 80061; 82306 ==

== ENCOUNTER 2024-01-13 17:08 | Outpatient (CLI) | payer OTHER, SELFPAY ==
--- OUTSIDE RECORDS SUMMARY | 2024-01-15 04:29 | XMS_ITS | Clinical Summary ---
Author Organization [employer] [facility] Address [place], [place] [address] Care Team Providers Care Technical Internship Name Role Phone Pcp, No Primary Care Provider Unavailabl e Allergies Active Allergy Reactions Criticality Noted Date Comments Latex Rash 03/07/2007 Medications Medication Sig Dispensed Refills Start Date End Date Status fluticasone-salmete rol (ADVAIR DISKUS) 500-50 mcg/Dose diskus inhalerIndications: Unspecified asthma(493.90) Inhale 1 Puff by mouth 2 times daily. 1 Inhaler 11 05/18/2010 Active albuterol HFA (PRO-AIR,VENTOLIN,P ROVENTIL) 90 mcg/Actuation inhaler Inhale 2 Puffs by mouth every 4 hours if needed for Shortness Of Breath, Wheezing and Other (Specify). cough 1 Inhaler 0 05/18/2010 Active cyclobenzaprine (FLEXERIL) 10 mg tablet Take 1 tablet by mouth 2 times daily. 20 tablet 0 05/21/2010 Active ergocalciferol (VITAMIN D) 50,000 unit capsuleIndications: Vitamin D deficiency Take 1 capsule by mouth. Take one tablet twice weekly 24 capsule 3 05/22/2010 Active fluticasone-salmete rol (ADVAIR DISKUS) 250-50 mcg/Dose diskus inhalerIndications: Unspecified asthma(493.90) Inhale 1 Puff by mouth 2 times daily. 1 Inhaler 0 09/09/2011 Active Active Problems Problem Noted Date Diagnosed Date Plantar fasciitis 10/15/2008 Unspecified asthma(493.90) 03/07/2007 Immunizations Name Administration Dates Next Due COVID-19 vaccine ([employer] NTech 30mcg/0.3mL) PF, MDV 05/13/2021,04/20/2021 DTaP 02/25/1982 Influenza A (H1N1), Inactiva hugo (Age >=3 Years) 06/10/2009 Influenza Intradermal PF 18-64 yrs 06/07/2014 Influenza, IIV3 (Age 6-35 mos) 05/01/2013,2009 Influenza, IIV3 (Age >=3 years) 05/02/2007 Influenza, IIV4 05/12/2023,,06/03/2018,2014,06/10/2009 Influenza, IIV4 (=>6mos) MDV 05/14/2022 Polio Virus, Unspecified 02/25/1982 Tdap 10/18/2017,05/02/2007 Family History Medical History Relation Name Comments Diabetes Father diagnosis in hi s 50's Hypertension Maternal Grandmother Diabetes Maternal Uncle grandmother-d meryltes~brother-lazy eye Hypertension Mother Hyperlipidemia Paternal Aunt Diabetes Paternal Grandmother Materna l Mother Diabetes Heart Disease Paternal Grandmother Hypertension Paternal Grandmother Stroke Paternal Grandmother Relation Name Status Comments Father Maternal Grandmother Maternal Uncle Mother Paternal Aunt Paternal Grandmother Social History Tobacco Use Types Packs/Day Years Used Date Smoking Tobacco: Former Cigarettes 0.2 1 Smokeless Tobacco: Never Comments:at age 13- experime nting. she has been around second-hand smoke all her life. Alcohol Use Standard Drinks/Week Comments No 0 (1 standard drink = 0.6 oz pur e alcohol) Sex and Gender Information Value Date Recorded Sex Assigned at Not on file Gender Identity Not on file Sexual Orientation Not on file Obstetrics History Last Filed Vital Signs Vital Sign Reading Time Taken Comments Blood Pressure 128/84 2016 9:46 AM CDT Pulse 80 2016 9:46 AM CDT Temperature 37.2 ??C (99 ??F) 01/10/2009 3:57 PM CDT Respiratory Rate - - Oxygen Saturation 95% 05/18/2010 9:14 AM CDT Inhaled Oxygen Concentration - - Weight 144.7 kg (319 lb) 07/30/2010 9:45 AM [facility] Height 167.6 cm (5' 6) 07/22/2010 10:15 AM [facility] Body Mass Index 51.49 07/22/2010 10:15 AM [facility] Plan of Treatment Health Maintenance Due Date Last Done Comments Depression screening for age 12+ 1988 HIV for age 15-65 1991 BMI (ht and wt on same day) for age 18+ 1994 Hepatitis C screening for age 18-79 1994 Pap test for age 21-65 1997 Colonoscopy through age 75 2021 Lipids for age 45-75 2021 05/18/2010, 05/02/2007, 03/07/2007 Mammogram for age 45-75 2021 COVID-19 vaccine series (3 - 2022-24 season) 2023 05/13/2021, 04/20/2021 Influenza for age 9-49 03/18/2024 , 05/14/2022, 06/15/2021, Additional history exists Tetanus booster 10/19/2027 10/18/2017, 05/02/2007 Tdap Completed 10/18/2017, 05/02/2007 Pneumococcal series for age 6-64 Aged Out No longer eligible based on patient's age to complete this topic Procedures Procedure Name Priority Date/Time Associated Diagnosis Comments LIPID PANEL Routine 05/18/2010 10:11 AM CDT Mixed hyperlipidemia from Last 3 Months or Most Recently Relevant to Health Maintenance Results * (ABNORMAL) LIPID (05/18/2010 10:11 AM CDT) CHOLESTEROL,TOTAL 191 110 - 199 mg/dL [facility] TRIGLYCERIDES 136 <150 mg/dL [facility] HDL CHOLESTEROL 35(L) >40 mg/dL [facility] CHOL/HDL RATIO 5.46(H) <4.51 [facility] LDL CHOLESTEROL 129 <131 mg/dL [facility] PATIENT STATUS Fasting [facility] Blood specimen (specimen) BLOOD SPECIMEN / Unknown 05/18/2010 10:11 AM CDT 05/18/2010 10:05 AM CDT Abril Oneal NP CHEMISTRY [facility] [address], [place] [id number] from Last 3 Months or Most Recently Relevant to Health Maintenance Care Teams Technical Internship Relationship Specialty Start Date End Date Pcp, No . PCP - General 09/10/15
== END 2024-01-13 17:09 | disposition home or self-care (01) ==
LOC: NFLDREF 01-15 04:27
PROVIDERS: PCP Family Medicine; Referring Provider Family Medicine; Visit Provider Physician Assistant
DX: R10.9 Unspecified abdominal pain (principal); R05.1 Acute cough
CPT/HCPCS: 87086

== ENCOUNTER 2024-01-27 15:58 | Emergency (ER) | payer OTHER, SELFPAY ==
[2024-01-27 16:06] VITALS: BP 148/86; RESP 18; TEMP 35.9; O2SAT 97; BMI 47.8
--- NOTE | 2024-01-27 17:18 | ED.ABDPAIN ---
HPI - Abdominal Pain General Time Seen by Provider: 17:19 Date Seen: 01/27/24 Chief Complaint: Abdominal Pain Stated Complaint: abdominal pain, burning groin pain Time Seen by Provider: 01/27/24 17:11 Source: patient and RN notes reviewed Mode of arrival: ambulatory Limitations: no limitations History of Present Illness HPI narrative: Paradise is a 48-year-old female coming in with concern right-sided abdominal pain. Couple of weeks ago she was having respiratory symptoms, eye mattering and left flank pain. She did go to Urgent Care, her urinalysis was negative. She does have a history of kidney stones. Her pain is not her left side now but has traversed down to the right lower quadrant. In the interim she did see her primary doctor who gave her a Z-Jim and prednisone due to her cough and congestion and eye symptoms. She also has underlying asthma. These have cleared with a was medicines. Now she is feeling a burning right groin pain, burning sensation her right upper abdomen. She admits she has this burning sensation or right upper abdomen since she has had her gallbladder out but it is worse. Last couple of days she has noticed more right lower quadrant pain. Appetite has been okay. Yesterday she had a bowel movement that seemed a bit more mucousy but no blood. She had an emesis a couple of days ago, has felt nauseated with this. Her stomach feels like it is more noisy but there has been no heartburn or reflux symptoms. For the last 10-15 year she states her menses only comes every few months. MD elicited complaint: abdominal pain Related Data Home Medications ?Medication ?Instructions ?Recorded ?Confirmed loratadine 10 mg tablet 10 mg PO DAILY 03/09/22 01/16/24 multivitamin 1 tab PO QDAY 03/09/22 01/16/24 Previous Rx's ?Medication ?Instructions ?Recorded albuterol sulfate 2.5 mg/3 mL 2.5 mg (3 mL) inhalation ONCE PRN 06/29/23 (0.083 %) solution for nebulization shortness of breath or wheezing #75 mL albuterol sulfate 90 mcg/actuation 2 puff inhalation .Q4hprn PRN 06/29/23 aerosol inhaler shortness of breath or wheezing #8.5 grams azithromycin 250 mg tablet See Rx Instructions PO .COMPLEX #6 01/16/24 tabs prednisone 20 mg tablet 40 mg (2 x 20 mg) PO QDAY #10 tabs 01/16/24 Allergies Allergy/AdvReac Type Severity Reaction Status Date / Time latex Allergy Mild Rash Verified 01/16/24 13:43 Review of Systems Status of ROS Reports: 6 or more systems reviewed and unremarkable except as noted in History and below [facility] Medical History Cerumen impaction ?H61.20 - Impacted cerumen, unspecified ear (ICD-10) Calculus of kidney ?N20.0 - Calculus of kidney (ICD-10) Allergic reaction ?T78.40XA - Allergy, unspecified, initial encounter (ICD-10) Surgical History History of tonsillectomy (09/28/11) ?Z90.89 - Acquired absence of other organs (ICD-10) History of cholecystectomy ?Z90.49 - Acquired absence of other specified parts of digestive tract (ICD-10) Social History What is your current living situation?: I presently have a place to live Problems where you live: no known problems In the past 12 months, utilities in danger of being shut off: no In past 12 months, lack of transportation kept you from medical appts, meetings, work, or getting things needed for daily living: yes In the past 12 mos, have been you worried that your food would run out before you had money to buy more?: never true In the past 12 mos, the food you bought just didn't last and you didn't have money to buy more?: never true Smoking Status: Never smoker How often do you have a drink containing alcohol: never How often do you have six or more drinks on one occasion: Never AUDIT-C Alcohol total score: 0 Non-prescribed substance use: denies use How often does anyone, including family, friends and others, physically hurt you: never How often does anyone, including family, friends and others, insult or talk down to you: sometimes How often does anyone, including family, friends and others, threaten you with harm: never How often does anyone, including family, friends and others, scream or curse at you: never Little interest or pleasure in doing things: not at all Feeling down, depressed, or hopeless: several days Exam Const: Vital Signs, click to edit/add: Vital Signs - 24 hr 01/27/24 16:06 01/27/24 19:30 Temperature 96.6 F L Pulse Rate [Pulse Oximeter] 67 Respiratory Rate 18 16 Blood Pressure [Ri ght Upper Arm] 148/86 H 156/91 H Pulse Oximetry 97 97 Oxygen Delivery Me thod Room Air Room Air This 48-year-old female is alert, interactive, no apparent distress. Sclera clear, wearing a knee in 95 mask. Sits up easily, lungs are clear, good air entry, no wheezing crackles, no tachypnea. No CVA tenderness. CV regular rate and rhythm, no murmur, normal S1-S2, no S3-S4. Abdomen is obese but soft. Body habitus precludes any sense of masses or organomegaly. She certainly does not have any rebound or guarding. Pain is more right mid to right lower quadrant but exam is benign. Feel no groin mass. Pelvic exam deferred at this point. Patient was ambulatory into the ED of her own accord. Documenting provider has reviewed patient's vital signs: yes Course Course ED Course: Paradise declines any need for any pain medicine. Will proceed with CT imaging with IV contrast, rule out urologic issues, consider appendicitis as well. Will get full complement of baseline labs as well as repeat urinalysis. Reevaluation(s) Time of Reevaluation #1: 19:50 Reevaluation #1: Reviewed with Paradise that her CT showing no acute intra-abdominal pathology. She does have a small fat containing umbilical hernia but this is not concerning at this time. Her white blood count is minimally elevated, she just completed a course of steroids in the last 2-3 days. She has a follow-up with her primary care provider on Tuesday. I do not know the exact etiology of her symptoms tonight but we have affectively ruled out emergent surgical issues. Urine does not show any evidence of infection but we will obtain a culture. We discussed other etiologies such as interstitial cystitis that can happen where irritative urinary symptoms developed. This is not something that would be diagnosed out of the ER, requires further outpatient evaluation. She has follow-up with her primary care provider and if worsening over the weekend, return for further evaluation. Vital Signs Vital signs: Initial Vital Signs Temperature 96.6 F L 01/27/24 16:06 Temperature Source Temporal Artery Scan 01/27/24 16:06 Respiratory Rate 18 01/27/24 16:06 Blood Pressure 148/86 H 01/27/24 16:06 Blood Pressure Mean 106 H 01/27/24 16:06 Pulse Oximetry 97 01/27/24 16:06 Oxygen Delivery Method Room Air 01/27/24 16:06 Vital Signs Temperature 96.6 F L 01/27/24 16:06 Respiratory Rate 18 01/27/24 16:06 Blood Pressure 148/86 H 01/27/24 16:06 Pulse Oximetry 97 01/27/24 16:06 Oxygen Delivery Method Room Air 01/27/24 16:06 Temperature 96.6 F L 01/27/24 16:06 Pulse Rate 67 01/27/24 19:30 Respiratory Rate 16 01/27/24 19:30 Blood Pressure 156/91 H 01/27/24 19:30 Pulse Oximetry 97 01/27/24 19:30 Oxygen Delivery Method Room Air 01/27/24 19:30 MDM - Abdominal Pain Lab Data Attestation: I reviewed the patient's lab results. Labs: Lab Results 01/27/24 Range/Units 17:45 WBC 12.35 H (4.50-11.00) K/uL RBC 4.86 (4.00-5.20) m/uL Hgb 14.5 (12.0-16.0) gm/dL Hct 45.0 (33.0-51.0) % MCV 93 (80-100) fL MCH 30 (26-34) pg MCHC 32 (32-36) gm/dL RDW Coeff of Susie 12.9 (11.5-15.5) % Plt Count 264 (140-440) K/uL Neut % (Auto) 65.2 (42.0-72.0) % Lymph % (Auto) 25.7 (20-44) % [place] % (Auto) 4.7 (0.0-11.0) % Eos % (Auto) 3.8 (0.0-7.0) % Baso % (Auto) 0.4 (0.0-3.0) % Neut # (Auto) 8.10 H (1.7-7.0) K/uL Lymph # (Auto) 3.20 H (0.90-2.90) K/uL [place] # (Auto) 0.60 (0.00-0.90) K/UL Eos # (Auto) 0.50 (0.00-0.50) K/uL Baso # (Auto) 0.00 (0.00-0.30) K/uL Abs Immat Gran (auto) 0.00 (0.00-0.30) K/uL Imm/Tot Granulo (auto) 0.2 % Sodium 137 (135-149) mmol/L Potassium 3.6 (3.6-5.1) mmol/L Chloride 102 (96-114) mmol/L Carbon Dioxide 31 (20-32) mmol/L Anion Gap 4 L (7-15) mEq/L BUN 12 (5-24) mg/dL Creatinine 0.8 (0.5-1.5) mg/dL Estimated Creat Clear 84.54 Estimated GFR 91 ml/min Glucose 109 (60-115) mg/dL Lactate 0.8 (0.5-1.9) mmol/L Calcium 9.4 (8.4-10.6) mg/dL Total Bilirubin 0.8 (0.1-1.5) mg/dL AST 32 (12-35) U/L ALT 35 (4-35) U/L Alkaline Phosphatase 83 (40-150) U/L Total Protein 7.7 (6.0-8.3) g/dL Albumin 4.5 (3.3-5.0) g/dL Lipase 57 (23-300) U/L Urine Color Yellow (Yellow) Urine Appearance Clear (Clear) Urine pH 5.5 (5.0-8.5) Ur Specific [place] 1.020 (1.000-1.030) Urine Protein Negative (Negative) Urine Glucose (UA) Negative (Negative) Urine Ketones Negative (Negative) Urine Blood 1+ A (Negative) Urine Nitrite Negative (Negative) Urine Bilirubin Negative (Negative) Urine Urobilinogen 0.2 (0.2-1.0) Ur Leukocyte Esterase Negative (Negative) Urine RBC 2-5 A (0-2) Urine WBC 0-2 (0-5) Ur Squamous Epith Cells Few (None-Few) Urine Bacteria None (None) Imaging Data CT scan - abdomen: Attestation: I have reviewed the pertinent imaging results. Radiologist's impression: Patient: PARADISE MORGAN Facility:?[facility] RIS Patient ID:?[id number] Site Patient ID:?[id number]. Site :?[id number] Study:?CT-Abdomen/Pelvis W ISOVUE 370-01/27/2024 6:16:56 PM Ordering Physician:Divya Norman Final Report: Indication: Right-sided abdominal pain, emesis Technique: CT through the abdomen and pelvis following 149 mL Omnipaque 370 IV contrast Comparison: None Findings: Lower chest: No acute abnormality appreciated. Hepatobiliary: No significant parenchymal abnormality is appreciated. Cholecystectomy. Spleen: Unremarkable. Pancreas: No acute abnormality appreciated. Adrenal glands: No acute abnormality appreciated. Kidneys: No significant parenchymal abnormality appreciated. No visualized calculi. No hydronephrosis. Bowel: No obstruction. No focal perienteric or pericolonic stranding is appreciated. The appendix is visualized and appears unremarkable. Vascular: No acute abnormality appreciated. Lymph nodes: No gross lymphadenopathy. Peritoneum: No free air. No free fluid. : No acute abnormality appreciated. Soft tissues: No acute abnormality appreciated. Eventration of the body wall. Tiny fat containing umbilical hernia. Bones: No acute fracture. No lytic or blastic lesion. Degenerative changes of the spine and pelvis. Impression: No acute abnormality appreciated. Please note that all CT scans at this facility use dose modulation, iterative reconstruction, and/or weight-based dosing when appropriate to reduce radiation dose to as low as reasonably achievable. Dictated by Abner Mohan MD @ 01/27/2024 7:30:07 PM (Electronic Signature) Discharge Plan Discharge Clinical Impression: Abdominal pain Qualifiers: Abdominal location: right lower quadrant Qualified Code(s): R10.31 - Right lower quadrant pain Patient Disposition: Home, Self-Care Condition: Stable Instructions: Abdominal Pain (ED) Additional Instructions: Can try some Tylenol or ibuprofen per bottle directions as needed for discomfort. Keep your follow-up with your primary care provider on Tuesday that you have scheduled. If you develop increasing abdominal pain, develops fever vomiting with abdominal pain, have new or other concerns in the interim, return for re-evaluation. Activity Level: Activity as Tolerated Prescriptions: No Action loratadine 10 mg tablet 10 mg PO DAILY multivitamin Tablet 1 tab PO QDAY albuterol sulfate 2.5 mg /3 mL (0.083 %) solution for nebulization 2.5 mg inhalation ONCE PRN (Reason: shortness of breath or wheezing) Qty: 75 3RF albuterol sulfate 90 mcg/actuation HFA aerosol inhaler 2 puff inhalation .Q4hprn PRN (Reason: shortness of breath or wheezing) Qty: 8.5 2RF azithromycin 250 mg tablet See Rx Instructions PO .COMPLEX Qty: 6 0RF Rx Instructions: For 250 mg dose pack: take 500 mg today (day 1), then 250 mg for 4 days (days 2-5) PO prednisone 20 mg tablet 40 mg PO QDAY Qty: 10 0RF Follow Up/Referrals: Anthony Parmar MD [Primary Care Provider] - Stand Alone Forms: [employer] Info Instructions
--- NOTE | 2024-01-27 17:28 | CRLHL7_ITS ---
For Patients: As a result of the Century Cures Act, medical imaging exams and procedure reports are released immediately into your electronic medical record. You may view this report before your referring provider. If you have questions, please contact your health care provider. Indication: Right-sided abdominal pain, emesis Technique: CT through the abdomen and pelvis following 149 mL Omnipaque 370 IV contrast Comparison: None Findings: Lower chest: No acute abnormality appreciated. Hepatobiliary: No significant parenchymal abnormality is appreciated. Cholecystectomy. Spleen: Unremarkable. Pancreas: No acute abnormality appreciated. Adrenal glands: No acute abnormality appreciated. Kidneys: No significant parenchymal abnormality appreciated. No visualized calculi. No hydronephrosis. Bowel: No obstruction. No focal perienteric or pericolonic stranding is appreciated. The appendix is visualized and appears unremarkable. Vascular: No acute abnormality appreciated. Lymph nodes: No gross lymphadenopathy. Peritoneum: No free air. No free fluid. : No acute abnormality appreciated. Soft tissues: No acute abnormality appreciated. Eventration of the body wall. Tiny fat containing umbilical hernia. Bones: No acute fracture. No lytic or blastic lesion. Degenerative changes of the spine and pelvis. Impression: No acute abnormality appreciated. Please note that all CT scans at this facility use dose modulation, iterative reconstruction, and/or weight-based dosing when appropriate to reduce radiation dose to as low as reasonably achievable. Dictated by Abner Mohan MD @ 01/27/2024 7:30:07 PM (Electronically Signed)
--- OUTSIDE RECORDS SUMMARY | 2024-01-27 17:33 | XMS_ITS | Clinical Summary ---
Author Organization [employer] [facility] [employer] Address [place], [place] [address] Care Team Providers Care Theatrical Dresser Name Role Phone Pcp, No Primary Care [...] Name Administration Dates Next Due COVID-19 vaccine ([employer] 30mcg/0.3mL) PF, MDV 05/13/2021,04/20/2021 DTaP 02/25/1982 [...] 144.7 kg (319 lb) 07/30/2010 9:45 AM EDGER OPERATOR Height 167.6 cm (5' 6) 07/22/2010 10:15 AM EDGER OPERATOR Body Mass Index 51.49 07/22/2010 10:15 AM EDGER OPERATOR Plan of Treatment Health Maintenance Due Date [...] CDT) CHOLESTEROL,TOTAL 191 110 - 199 mg/dL [facility] TRIGLYCERIDES 136 <150 mg/dL [facility] HDL CHOLESTEROL 35(L) >40 mg/dL [facility] CHOL/HDL RATIO 5.46(H) <4.51 [facility] LDL CHOLESTEROL 129 <131 mg/dL [facility] PATIENT STATUS Fasting [facility] Blood specimen (specimen) BLOOD SPECIMEN / Unknown 05/18/2010 10:11 AM CDT 05/18/2010 10:05 AM CDT Abril Oneal NP CHEMISTRY [facility] [address], [place] [id number] from Last 3 Months or Most Recently Relevant to Health Maintenance Care Teams Theatrical Dresser Relationship Specialty Start Date End Date Pcp, No . PCP - General 09/10/15
[2024-01-27 17:59] LABS: Lactate* 0.8 mmol/L (0.5-1.9)
[2024-01-27 18:00] LABS: Appearance Urine Clear (Clear); Bilirubin Urine Negative (Negative); Blood Urine 1+ (Negative); Color Urine Yellow (Yellow); Glucose Urine Negative (Negative); Ketones Urine Negative (Negative); Leukocyte Esterase Urine Negative (Negative); Nitrite Urine Negative (Negative); Protein Urine Negative (Negative); Urobilinogen Urine 0.2 (0.2-1.0); pH Urine 5.5 (5.0-8.5)
[2024-01-27 18:01] LABS: Basophils Percent Auto 0.4 % (0.0-3.0); Eosinophils Percent Auto 3.8 % (0.0-7.0); Hemoglobin* 14.5 gm/dL (12.0-16.0); Immature Granulocytes Pct Auto 0.2 %; Lymphocytes Percent Auto 25.7 % (20-44); Mean Corpuscular HGB Conc 32 gm/dL (32-36); Mean Corpuscular Hemoglobin 30 pg (26-34); Mean Corpuscular Volume 93 fL (80-100); Monocytes Percent Auto 4.7 % (0.0-11.0); Neutrophils Percent Auto 65.2 % (42.0-72.0); Platelet Count* 264 K/uL (140-440); RDW Coefficient of Variation % 12.9 % (11.5-15.5); Red Blood Count 4.86 m/uL (4.00-5.20); White Blood Count* 12.35 K/uL (4.50-11.00)
[2024-01-27 18:02] LABS: Slide Review Reflex No
[2024-01-27 18:25] LABS: Squamous Epithelial Cell Urine Few (None-Few); WBC Urine 0-2 (0-5)
[2024-01-27 18:28] LABS: Albumin* 4.5 g/dL (3.3-5.0); Chloride* 102 mmol/L (96-114); Potassium* 3.6 mmol/L (3.6-5.1); Sodium* 137 mmol/L (135-149)
[2024-01-27 18:31] LABS: Alanine Aminotransferase* 35 U/L (4-35); Alkaline Phosphatase* 83 U/L (40-150); Anion Gap 4 mEq/L (7-15); Aspartate Amino Transferase* 32 U/L (12-35); Bilirubin Total* 0.8 mg/dL (0.1-1.5); Blood Urea Nitrogen* 12 mg/dL (5-24); Calcium* 9.4 mg/dL (8.4-10.6); Carbon Dioxide* 31 mmol/L (20-32); Creatinine* 0.8 mg/dL (0.5-1.5); Est. Creatinine Clearance* 84.54; Estimated Glomerular Filt Rate 91 ml/min; Glucose* 109 mg/dL (60-115); Lipase* 57 U/L (23-300); Total Protein* 7.7 g/dL (6.0-8.3)
[2024-01-27 19:30] VITALS: BP 156/91; PULSE 67; RESP 16; O2SAT 97
== END 2024-01-27 20:25 | disposition home or self-care (01) ==
PROVIDERS: Emergency Provider Family Medicine; PCP Family Medicine
DX: R10.31 Right lower quadrant pain (principal)
CPT/HCPCS: 36415; 74177; 80053; 81001; 83605; 83690; 85025; 99284; Q9967

== ENCOUNTER 2024-02-27 15:17 | Outpatient (CLI) | payer OTHER, SELFPAY ==
--- OUTSIDE RECORDS SUMMARY | 2024-02-27 15:19 | XMS_ITS | Clinical Summary ---
Author Organization [employer] [facility] Address [place], [place] [address] Care Team Providers Care Iron Worker Foreman Name Role Phone Pcp, No Primary Care [...] Name Administration Dates Next Due COVID-19 vaccine ([employer]ech 30mcg/0.3mL) PF, MDV 05/13/2021,04/20/2021 DTaP 02/25/1982 [...] 144.7 kg (319 lb) 07/30/2010 9:45 AM SUGAR LABORATORY ASSISTANT Height 167.6 cm (5' 6) 07/22/2010 10:15 AM SUGAR LABORATORY ASSISTANT Body Mass Index 51.49 07/22/2010 10:15 AM SUGAR LABORATORY ASSISTANT Plan of Treatment Health Maintenance Due Date [...] CDT) CHOLESTEROL,TOTAL 191 110 - 199 mg/dL [facility] TRIGLYCERIDES 136 <150 mg/dL [facility] HDL CHOLESTEROL 35(L) >40 mg/dL [facility] CHOL/HDL RATIO 5.46(H) <4.51 [facility] LDL CHOLESTEROL 129 <131 mg/dL [facility] PATIENT STATUS Fasting [facility] Blood specimen (specimen) BLOOD SPECIMEN / Unknown 05/18/2010 10:11 AM CDT 05/18/2010 10:05 AM CDT Abril Oneal NP CHEMISTRY [facility] [address] [place], [place] [id number] from Last 3 Months or Most Recently Relevant to Health Maintenance Care Teams Iron Worker Foreman Relationship Specialty Start Date End Date Pcp, No . PCP - General 09/10/15
--- NOTE | 2024-02-27 15:30 | CRLHL7_ITS ---
For Patients: As a result of the Century Cures Act, medical imaging exams and procedure reports are released immediately into your electronic medical record. You may view this report before your referring provider. If you have questions, please contact your health care provider. INDICATION: Low back pain. Anesthesia of the skin TECHNIQUE: Noncontrast sagittal and axial T1, T2, and sagittal STIR sequences are provided. No comparisons. FINDINGS: The overall stature, alignment and intrinsic marrow signal of the lumbar spine is within normal limits. Conus is normal. L1-2: Unremarkable. L2-3: Minor broad-based posterior disc bulge with mild facet arthropathy results in no central canal or foraminal narrowing. L3-4: Unremarkable. L4-5: Mild broad-based posterior disc bulge slightly eccentric to the left results in no significant central canal or foraminal narrowing. L5-S1: Unremarkable. IMPRESSION: 1. Mild degenerative change at L2-3, L4-5 resulting in no significant central canal or foraminal narrowing. 2. Otherwise, unremarkable MRI of the lumbar spine. Dictated by Ezra Lara MD @ 02/28/2024 8:04:35 AM (Electronically Signed)
== END 2024-02-27 15:18 | disposition home or self-care (01) ==
LOC: MRI 15:17
PROVIDERS: PCP Family Medicine; Visit Provider Family Medicine
DX: M54.50 Low back pain, unspecified (principal); M51.36 Other intervertebral disc degeneration, lumbar region; R20.0 Anesthesia of skin
CPT/HCPCS: 72148

== ENCOUNTER 2024-05-11 11:19 | Outpatient (CLI) | payer OTHER, SELFPAY ==
--- OUTSIDE RECORDS SUMMARY | 2024-05-11 11:21 | XMS_ITS | Clinical Summary ---
Author Organization [employer] [facility] Address [place], [place] [address] Care Team Providers Care Bus Operator Name Role Phone Pcp, No Primary Care [...] Name Administration Dates Next Due COVID-19 vaccine ([employer] NTech 30mcg/0.3mL) PF, MDV 05/13/2021,04/20/2021 DTaP 02/25/1982 [...] 144.7 kg (319 lb) 07/30/2010 9:45 AM AWNING FRAME MAKER Height 167.6 cm (5' 6) 07/22/2010 10:15 AM AWNING FRAME MAKER Body Mass Index 51.49 07/22/2010 10:15 AM AWNING FRAME MAKER Plan of Treatment Health Maintenance Due Date [...] 45-75 2021 COVID-19 vaccine series (3 - 2023- season) 2024 05/13/2021, 04/20/2021 Influenza for age 9-49 03/18/2024 [...] CDT) CHOLESTEROL,TOTAL 191 110 - 199 mg/dL [facility] TRIGLYCERIDES 136 <150 mg/dL [facility] HDL CHOLESTEROL 35(L) >40 mg/dL [facility] CHOL/HDL RATIO 5.46(H) <4.51 [facility] LDL CHOLESTEROL 129 <131 mg/dL [facility] PATIENT STATUS Fasting [facility] Blood specimen (specimen) BLOOD SPECIMEN / Unknown 05/18/2010 10:11 AM CDT 05/18/2010 10:05 AM CDT Abril Oneal NP CHEMISTRY [facility] [address] [place], [place] [id number] from Last 3 Months or Most Recently Relevant to Health Maintenance Care Teams Bus Operator Relationship Specialty Start Date End Date Pcp, No . PCP - General 09/10/15
--- NOTE | 2024-05-11 11:30 | CRLHL7_ITS ---
For Patients: As a result of the Century Cures Act, medical imaging exams and procedure reports are released immediately into your electronic medical record. You may view this report before your referring provider. If you have questions, please contact your health care provider. BILATERAL SCREENING MAMMOGRAM WITH COMPUTER-AIDED DETECTION AND TOMOSYNTHESIS TECHNIQUE: CC and MLO views were obtained. These mammographic images have been obtained using full-field digital technique. These mammographic images were interpreted with the benefit of computer-aided detection. Breast Tomosynthesis was used in this interpretation. COMPARISON FILM: 05/09/23, 05/06/22, 05/05/21. FINDINGS: There are scattered areas of fibroglandular density IMPRESSION: There is no radiographic evidence for malignancy. ASSESSMENT: BI-RADS Category 1: Negative RECOMMENDATION: Routine screening mammogram in 1 year. A lay language report of this examination will be provided to the patient. Wayne Ritchie M.D. Diagnostic Radiologist [email or web address] STEFANY/Dictated by: Wayne Ritchie MD @ 05/11/2024 12:05:00 PM (Electronically Signed)
== END 2024-05-11 11:20 | disposition home or self-care (01) ==
LOC: MAMMO 11:19
PROVIDERS: PCP Family Medicine; Visit Provider Family Medicine
DX: Z12.31 Encounter for screening mammogram for malignant neoplasm of breast (principal)
CPT/HCPCS: 77063; 77067

== ENCOUNTER 2024-07-17 08:45 | Outpatient (RCR) | payer OTHER, SELFPAY | END 2024-11-14 23:59 | disposition home or self-care (01) | PROVIDERS: PCP Family Medicine; Visit Provider Family Medicine | DX: M54.2 Cervicalgia (principal); M54.50 Low back pain, unspecified; Z51.89 Encounter for other specified aftercare | CPT/HCPCS: 97110; 97140; 97161; 97530 ==

== ENCOUNTER 2024-10-24 07:40 | Outpatient (CLI) | payer OTHER, SELFPAY | END 2024-10-24 07:41 | disposition home or self-care (01) | LOC: NFLDREF 10-28 17:52 | PROVIDERS: PCP Family Medicine; Referring Provider Family Medicine; Visit Provider Family Medicine | DX: E55.9 Vitamin D deficiency, unspecified (principal); E78.5 Hyperlipidemia, unspecified; R73.03 Prediabetes | CPT/HCPCS: 80053; 80061; 82306 ==

== ENCOUNTER 2024-11-09 15:38 | Outpatient (CLI) | payer OTHER, SELFPAY ==
--- NOTE | 2024-11-09 16:00 | CRLHL7_ITS ---
For Patients: As a result of the Century Cures Act, medical imaging exams and procedure reports are released immediately into your electronic medical record. You may view this report before your referring provider. If you have questions, please contact your health care provider. Indication: Right flank pain history of ureteral stone Technique: Noncontrast CT abdomen and pelvis Please note that all CT scans at this facility use dose modulation, iterative reconstruction, and/or weight-based dosing when appropriate to reduce radiation dose to as low as reasonably achievable. Comparison: 01/18/2023 Findings: No bowel obstruction or free air. No free fluid or abscess. Normal uterus, ovaries and bladder. Incidental right pelvic phlebolith. Normal ureters. No stone or hydroureter. No hydronephrosis or renal cyst. Spleen normal. Normal adrenal glands. Pancreas unremarkable. Liver within normal limits. Gallbladder absent. No hiatal hernia. Lung bases clear. Facet degeneration lower lumbar spine. Ankylosis thoracolumbar junction. No fracture. Impression: No acute findings. Previously noted distal left ureteral stone is no longer present. Please note that all CT scans at this facility use dose modulation, iterative reconstruction, and/or weight-based dosing when appropriate to reduce radiation dose to as low as reasonably achievable. Dictated by Wayne Ritchie MD @ 11/11/2024 8:03:22 AM (Electronically Signed)
== END 2024-11-09 15:39 | disposition home or self-care (01) ==
LOC: CT 15:39
PROVIDERS: PCP Family Medicine; Visit Provider Family Medicine
DX: R10.9 Unspecified abdominal pain (principal)
CPT/HCPCS: 74176